=== PATIENT | male | born 1975 | race Hispanic/Latino ===

== ENCOUNTER 2022-07-12 14:32 | Emergency (ER) | payer OTHER, SELFPAY ==
[2022-07-12 14:33] VITALS: BP 126/80; PULSE 67; RESP 18; TEMP 36.5; O2SAT 100; BMI 23.4
[2022-07-12 14:40] VITALS: BP 126/74; PULSE 70; RESP 17; O2SAT 99
--- NOTE | 2022-07-12 15:10 | ED.VIS.CHEST ---
HPI History of Present Illness Chief Complaint: Chest Pain Detail of Chief Complaint: Chest pain Informant: patient Narrative Narrative: Patient presents with chest pain that started 1 month ago. Patient states that is some pressure and pain at radiates straight through to his back from his left chest. Pain does not go down his arm. He had no shortness of breath or nausea or vomiting with this. It has been continuous and it is about a 3 out of 10 at rest. With activity it seems to be worsened with deep breath and goes up to about a 5 or 6 out of 10. Patient was seen in urgent care and referred to the ER. Patient has conference interpreter with him as he does not speak Ethiopian. His career education teacher is here to interpret for him. Patient has no significant family history of heart disease. He has no medical problems such as diabetes or hypertension or cholesterol. He denies recent travel or surgery. No history of PE or DVT. Prior Similar Symptoms: No PFSH PFSH Medical History no medical history Home Medications naproxen 500 mg tablet 500 mg PO BID #20 tabs 07/12/22 [Rx Last Taken Unknown] Allergy/AdvReac Type Severity Reaction Status Date / Time No Known Allergies Allergy Verified 07/12/22 14:34 Social History Smoking Status: Unknown if ever smoked ROS ROS ED Review of Systems ROS Unobtainable: other Constitutional Constitutional ED: Reports lethargy; Denies chills, fever(s), sweats or weight loss Eyes Eyes: Denies blurry vision, change in vision or diplopia ENT ENT ED: Denies rhinorrhea or sore throat Cardiovascular Cardiovascular: Reports chest pain; Denies orthopnea or racing heartbeat Respiratory/Chest Respiratory/Chest: Denies cough, dyspnea, dyspnea on exertion, orthopnea or sputum Gastrointestinal Gastrointestinal: Denies abdominal pain, diarrhea, nausea or vomiting Genitourinary Genitourinary ED: Denies dysuria, hematuria or urinary frequency Musculoskeletal Musculoskeletal: Denies arthralgias, back pain, myalgias or neck pain Integumentary Denies abscess, Abrasions or rash Neurologic Neurologic: Denies headache(s) or weakness Psychiatric Psychiatric: Denies anxiety, depression or suicidal thoughts Endocrine Endocrinology: Denies polydipsia, polyphagia or polyuria Hematologic/Lymphatic Hematologic/Lymphatic: Denies easy bleeding, easy bruising or lymphadenopathy Allergic/Immunologic Allergic/Immunologic ED: Denies mouth swelling, tongue swelling or urticaria EXAM Physical Exam Const Vital Signs: 07/12/22 14:33 07/12/22 14:40 07/12/22 15:35 Temperature 97.7 F L Temperature Source Temporal Pulse Rate 67 70 Respiratory Rate 18 17 Blood Pressure 126/80 H 126/74 H Blood Pressure Mean 95 91 Pulse Ox 100 99 Oxygen Delivery Method Room Air Room Air Room Air 07/12/22 17:02 Temperature Temperature Source Pulse Rate 101 H Respiratory Rate 21 H Blood Pressure 131/66 H Blood Pressure Mean 87 Pulse Ox 98 Oxygen Delivery Method Room Air Positive well nourished and well developed General Appearance ED: well developed and NAD HEENT Reports TM's clear and moist mucous membranes normocephalic and atraumatic; Negative for trauma or tenderness Tympanic Membrane ED: Yes TM's clear Eyes PERRL and EOMs intact bilaterally General Eye ED: Negative for pale conjunctiva or scleral icterus Neck no lymphadenopathy, supple and no JVD General: Negative for tenderness Chest Wall inspection of chest normal and palpation of chest normal Chest: Negative for tenderness Resp normal respiratory effort and clear to auscultation bilaterally Effort and Inspection: Negative for respiratory distress or pain with movement Auscultation: Negative for rhonchi, wheezes or diminished lung sounds Cardio regular rate, regular rhythm, S1 normal heart sound, S2 normal heart sound and no murmurs Peripheral Pulses: pulses 2+ throughout GI normal to inspection, nondistended, normoactive bowel sounds, soft to palpation, non-tender, non-distended and no masses Back/Spine no CVA tenderness and no thoracic nor lumbar tenderness Extremity normal to inspection General Extremety ED: Negative for edema General Extremity: Negative for edema Neuro oriented x3, CN's II-XII intact bilaterally, no sensory deficits noted and gait normal Sensorium / Orientation: awake, alert, oriented to person, oriented to place and oriented to time Motor Exam: strength 5/5 throughout and strength abnormal Psych mental status grossly normal Skin no rashes or lesions noted and no wounds Heart Score History: Slightly/Non-Suspicious ECG: Nonspecific Repolarization Age: </= 45 years Risk Factors: No Risk Factors Troponin: </= Normal Limit Score: 1 MDM MDM MDM Narrative Medical decision making narrative: Patient presents with chest discomfort for over a month that seems at times pleuritic and positional. EKG was obtained and did not show any evidence of acute coronary syndrome. Troponin was normal. D-dimer was normal. CBC with differential and chemistries were unremarkable. Chest x-ray unremarkable. Heart score is a 1. Clinically I suspect musculoskeletal etiology for his pain. Patient will be given a prescription for naproxen. Patient will be given referral to primary care physician for follow-up. Advised to return if worsening pain, increasing shortness of breath, or condition should worsen anyway. Lab Data Attestation: I reviewed the patient's lab results. Labs: Laboratory Results - last 24 hr 07/12/22 07/12/22 07/12/22 15:27 15:27 15:27 WBC 6.1 RBC 5.05 Hgb 15.7 Hct 46.0 MCV 91.1 MCH 31.1 MCHC 34.1 RDW Std Deviation 42.0 RDW Coeff of [place] 12.6 Plt Count 217 MPV 10.8 Immature Gran % (Auto) 0.200 Neut % (Auto) 62.6 Lymph % (Auto) 28.9 [place] % (Auto) 6.9 Eos % (Auto) 1.1 Baso % (Auto) 0.3 Absolute Neuts (auto) 3.8 Absolute Lymphs (auto) 1.77 Nucleated RBC % 0 D-Dimer Quant (PE/DVT) < 0.27 L Sodium 139 Potassium 3.8 Chloride 107 Carbon Dioxide 26.0 Anion Gap 6 BUN 20 H Creatinine 0.72 Estim Creat Clear Calc 92.59 Est GFR (MDRD) Af Amer 152 Est GFR (MDRD) Non-Af 125 BUN/Creatinine Ratio 27.7 H Glucose 106 Calcium 8.7 Troponin I High Sens < 3 L Radiography Chest X-Ray - ED: 1 View Diagnostic Testing: Clinical Impression(s) from Imaging Studies Chest X-Ray 07/12/22 15:30 IMPRESSION: Normal x-ray examination of the chest. Electronically Signed: René Landry MD at 15:50 EDT , Chest x-ray obtained interpreted by myself as no acute infiltrate or pneumothorax. No acute disease process. Radiology in agreement. EKG Initial EKG: Attestation: I personally reviewed and interpreted this EKG as follows: Comments: Sinus rhythm with a ventricular rate of 66 bpm with occasional PACs and incomplete right bundle branch block Prior EKG tracings: not available for review Discharge Plan Triage Chief Complaint: Chest Pain ED Provider: Katarzyna Conde Dx/Rx/DC Orders Clinical Impression: Chest pain Instructions: ED Chest Pain, Uncertain Cause Prescriptions: New naproxen 500 mg tablet 500 mg PO BID Qty: 20 0RF Primary Care Provider: Care Physician,No Primary Referrals: Temo Harvey MD [Med Staff - Criminology Professor] - 3-5 Days Care Physician,No Primary [Primary Care Provider] - Disposition Disposition: Home, Self Care
[2022-07-12] MEDS: Aspirin 81 MG TAB.CHEW 324 MG PO (15:24)
[2022-07-12] MEDS: 0.9% Normal Saline 1,000 ML 150 ML IV (15:24)
--- NOTE | 2022-07-12 15:30 | RAD_ITS ---
STUDY: X-RAY CHEST REASON FOR EXAM: Male, 46 years old. Intermittent chest pain. TECHNIQUE: Single AP portable view of the chest. COMPARISON: None. FINDINGS: EKG electrodes are seen. The lungs are clear and expanded. There is no demonstrated pleural abnormality. Normal size heart. Normal mediastinum and aliya. Normal visualized pulmonary arteries. Normal visualized aortic arch and descending thoracic aorta. Normal visualized thoracic spine. Normal visualized ribs, clavicles, and shoulders. There is no demonstrated abnormality of the visualized soft tissue structures of the upper abdomen. RAD/Chest 1 View (Portable) IMPRESSION: Normal x-ray examination of the chest. Electronically Signed: René Landry MD at 15:50 EDT ,
[2022-07-12 15:39] LABS: Absolute Lymphocyte Count 1.77 X10^3/uL (0.83-4.51); Absolute Neutrophil Count 3.8 X10^3/uL (2.0-7.7); Basophil# 0.02 X10^3/uL; Basophil% 0.3 % (0-1); Eosinophil# 0.07 X10^3/uL; Eosinophils% 1.1 % (0-5); Hemoglobin 15.7 g/dL (13.0-16.5); Lymphocyte # 1.77 X10^3/ul (0.83-4.51); Lymphocyte % 28.9 % (19-41); Mean Corp Hgb Conc 34.1 g/dL (32-36); Mean Corpuscular Hgb 31.1 pg (27.0-32.0); Mean Corpuscular Volume 91.1 fL (80-94); Mean Platelet Vol. 10.8 fl (6.2-12.0); Monocyte# 0.42 X10^3/uL; Monocyte% 6.9 % (0-10); NRBC Flagged by Analyzer 0 % (0-5); Neutrophil # 3.84 X10^3/uL (2.7-7.7); Neutrophil % 62.6 % (47-70); Platelet Count 217 K/mm3 (150-450); RBC Distribution Width CV 12.6 % (11.6-14.6); Red Blood Count 5.05 M/mm3 (4.6-6.2); White Blood Count 6.1 K/mm3 (4.4-11.0)
[2022-07-12 15:54] LABS: Anion Gap 6 (5-15); BUN 20 mg/dL (7-18); BUN/Creat Ratio 27.7 RATIO (10-20); Calcium,Total 8.7 mg/dL (8.5-10.1); Chloride 107 mmol/L (98-107); Creatinine, Serum 0.72 mg/dL (0.70-1.30); EST Glomerular Filtration Rate 125 mL/min (>60); Est Glom Filt Rate - Afr Amer 152 mL/min (>60); Estimated Creatinine Clearance 92.59 ml/min; Glucose 106 mg/dL (74-106); Potassium 3.8 mmol/L (3.5-5.1); Sodium Level 139 mmol/L (136-145); Troponin-I HS (w/2H Reflex) < 3 pg/mL (3.0-78.0)
[2022-07-12 16:11] LABS: D-Dimer Quantitative (DVT/PE) < 0.27 FEU/ug/m (0.27-0.49)
[2022-07-12 17:02] VITALS: BP 131/66; PULSE 101; RESP 21; O2SAT 98
[2022-07-12 17:32] LABS: Reflex Troponin-HS? (from REC) Y
[2022-07-12 17:42] VITALS: BP 131/68; PULSE 59; RESP 16; O2SAT 98
== END 2022-07-12 17:43 | disposition home or self-care (01) ==
PROVIDERS: Emergency Provider Emergency Medicine; Visit Provider Emergency Medicine
DX: R07.9 Chest pain, unspecified (principal)
CPT/HCPCS: 71045; 80048; 84484; 85025; 85379; 93005; 99284; J7030; A4216